=== PATIENT | male | born 1985 | race Caucasian/White ===

== ENCOUNTER → 2016-09-05 | Outpatient (CLI) | payer BC ==
--- NOTE | 2016-09-06 08:04 | DIAGNOSTIC IMAGING REPORT ---
CT OF THE TEMPORAL BONES WITHOUT CONTRAST CT DOSE: 801.41 mGy.cm CLINICAL HISTORY: Conductive hearing loss and right hip. Evaluate for cholesteatoma. TECHNIQUE: Thin cut axial images of the temporal bones were obtained without IV contrast. Sagittal and coronal reconstructions were viewed. COMPARISON STUDY: None. FINDINGS: The left mastoid air cells are clear. There is no fluid or soft tissue within the left middle ear. The left ossicles are intact. The left scutum is intact. There is abnormal soft tissue density within the right middle ear along the posterior superior aspect of the ossicles that measures approximately 1.2 x 0.8 x 1.3 cm. There is associated bony remodeling. This soft tissue is centered within the medial epitympanum. This extends superiorly to the level of the tegmen tympani. There is no definite disruption of the tegmen tympani. No pneumocephalus is identified. There is minimal soft tissue within Prussak's space. The scutum on the right is intact. A small amount of fluid is also noted within the right mastoid air cells. The orbits are unremarkable. Visualized portions of the intracranial contents are unremarkable on this unenhanced exam. There is mild mucosal thickening of the sinuses. IMPRESSION: 1. Abnormal soft tissue within the right middle ear, measuring approximately 1.2 x 0.8 x 1.3 cm, centered within the medial epitympanum. This extends along the posterior superior aspect of the ossicles with minimal soft tissue within Prussak's space. Ossicles appear intact but suspected bony erosion of mastoid air cells. Extension to the tegmen tympani with thinning but no definite disruption. The appearance suggests a cholesteatoma within the right middle ear. Small amount of fluid within the right mastoid air cells. 2. Normal appearance of the left mastoid air cells and left middle ear. Left ossicles intact. Electronically signed by: César Calvin M.D. 09/06/2016 8:03 AM Dictated Date/Time: 09/05/2016 11:59 AM
== END | disposition home or self-care (01) ==
LOC: C.CTS 11:32
PROVIDERS: ATTEND Surgery
DX: H90.11 Conductive hearing loss, unilateral, right ear, with unrestricted hearing on the contralateral side (principal); H71.91 Unspecified cholesteatoma, right ear

== ENCOUNTER → 2017-10-04 | Outpatient (CLI) | payer BC ==
--- NOTE | 2017-10-04 17:26 | DIAGNOSTIC IMAGING REPORT ---
(TESTICULAR) SCROTUM-CONT HISTORY: Pain TESTICULAR PAIN, UNSPECIFIED COMPARISON: None. FINDINGS: Right testis: Maximum dimension 4.9 cm. Normal vascular flow Left testis: Maximum dimension 5.0 cm. Normal vascular flow IMPRESSION: Normal testicular ultrasound. Normal vascular flow to both testis. The above report was generated using voice recognition software. It may contain grammatical, syntax or spelling errors. Electronically signed by: Yoan Amezcua M.D. 10/04/2017 5:24 PM Dictated Date/Time: 10/04/2017 5:23 PM
== END | disposition home or self-care (01) ==
LOC: C.ULTR 16:11
PROVIDERS: ATTEND Family Medicine
DX: N50.819 Testicular pain, unspecified (principal)

== ENCOUNTER → 2018-02-25 | Outpatient (CLI) | payer BC ==
--- NOTE | 2018-02-25 12:29 | DIAGNOSTIC IMAGING REPORT ---
ULTRASOUND OF THE LEFT FOOT CLINICAL HISTORY: Palpable lump along the plantar surface of the foot at the level of the second/third metatarsal. COMPARISON STUDY: No priors. FINDINGS: Real-time, grayscale, and color flow sonography of the soft tissues along the plantar aspect of the foot is performed at the indicated site of interest. Within the subcutaneous soft tissues at the indicated site of palpable concern, there is a 1.1 x 0.4 x 0.7 cm hypoechoic well-circumscribed nodule within the subcutaneous fat. No internal flow seen on color imaging. IMPRESSION: There is a 1.1 cm hypoechoic nodule identified in the subcutaneous fat at the indicated site of interest. This is pathologically indeterminant, and is not clearly located along the course of the plantar fascia or a tendon sheath. Surgical assessment is recommended. Dictated: 02/25/2018 12:13 PM Transcribed: 02/25/2018 12:29 PM [email or web address] Electronically signed by: Wai Lawton M.D. 02/25/2018 12:37 PM Dictated Date/Time: 02/25/2018 12:13 PM
== END | disposition home or self-care (01) ==
LOC: C.ULTRBC 10:56
PROVIDERS: ATTEND Family Medicine
DX: R22.42 Localized swelling, mass and lump, left lower limb (principal)